=== PATIENT | female | born 1980 | race Caucasian/White ===

== ENCOUNTER 2025-04-04 14:48 | Outpatient (CLI) | payer OTHER, SELFPAY ==
--- NOTE | ~2025-04-04 | US_ITS ---
US thyroid INDICATION: Foreign body sensation TECHNIQUE: Real-time sonographic images of the thyroid gland were obtained. COMPARISON: No prior studies for comparison. FINDINGS: The right thyroid lobe measures 3.7 x 1.4 x 1.4 cm. The left thyroid lobe measures 2.6 x 1 x 0.7 cm. There is normal echotexture and echogenicity throughout the thyroid gland. In the right th yroid lobe there is a heterogeneous predominantly hypoechoic, wider than tall, solid mass with irregu lar margins, punctate internal echogenic foci, TR 7 measuring 1.8 x 1.3 x 1.2 cm. Isthmus measures 3 mm. Normal vascular flow is present. IMPRESSION: 1. Complex suspicious 1.8 cm right thyroid mass, TR 7. Ultrasound-guided fine-needle aspiration biop sy recommended. Reviewed, dictated and finalized at location A. IMPRESSION: 1. Complex suspicious 1.8 cm right thyroid mass, TR 7. Ultrasound-guided fine- needle aspiration biopsy recommended.
--- NOTE | ~2025-04-04 | CT_ITS ---
CT scan of the Neck Technique: 2.5 mm axial scans were obtained through the neck after intravenous administration of 75 c c Omnipaque 350. Coronal and sagittal reconstructions of the neck were obtained. Dose reduction techn ique was used on this scan by utilizing automated exposure control and iterative reconstruction techn ique. The dose-length product (DLP) was 320.53 mGy-cm. Clinical History: Foreign body sensation Findings: There is no evidence of any significant cervical lymphadenopathy. Several small, nonenlarged jugulo- digastric and posterior cervical lymph nodes are noted bilaterally. Parapharyngeal spaces appear norm al bilaterally. The parotid and submandibular glands appear normal. There is an apparent air-filled diverticulum or other outpouching from the esophagus, extending anter iorly, at the level of the clavicular heads (axial images [id number]). The pharyngeal mucosal spaces appear normal. No soft tissue masses are seen in the neck. The thyroid gland appears normal. Images of the lung apices reveal no abnormalities. Impression: Probable air-filled diverticulum or outpouching from the esophagus at the level of the clavicular hea ds extending anteriorly, as detailed above. Esophagram advised for further evaluation/characterizatio n. Reviewed, dictated and finalized at location M. Impression: Probable air-filled diverticulum or outpouching from the esophagus at the level of the clavicular heads extending anteriorly, as detailed above. Esophagram ad vised for further evaluation/characterization.
== END 2025-04-04 14:49 | disposition home or self-care (01) ==
PROVIDERS: PCP Otolaryngology; Visit Provider Otolaryngology
DX: R09.A2 Foreign body sensation, throat (principal)
CPT/HCPCS: 70491; 76536; Q9967